=== PATIENT | male | born 1945 | race Caucasian/White ===

== ENCOUNTER 2019-04-17 17:59 | Inpatient (IN) ==
[2019-04-17] MEDS ORDERED: HYDROmorphone 2 MG/1 ML VIAL IV STA (19:59)
[2019-04-17] MEDS ORDERED: FUROSEMIDE 40 MG/4 ML VIAL IV STA (19:59)
[2019-04-17] MEDS ORDERED: ONDANSETRON 4 MG/2 ML VIAL IV STA (19:59)
[2019-04-17] MEDS ORDERED: PANTOPRAZOLE 40 MG VIAL IV STA (19:59)
[2019-04-17 20:50] LABS: Basophils % 0.4 % (0.0-0.8); Eosinophils # 0.1 10*3/uL (0.0-0.87); Eosinophils % 1.6 % (0.00-10.9); Hematocrit 34.3 VOL% (42.0-52.0); Hemoglobin 10.4 GM/DL (14.0-18.0); Immature Granulocytes % 0.6 %; Immature Granulocytes Absolute 0.04 #; Lymphocytes % 14.6 % (21.2-54.2); Mean Corpuscular HGB Conc 30.3 GM/DL (32-36); Mean Corpuscular Volume 80.3 FL (87-102); Mean Platelet Volume 12.7 FL (9.6-12.0); Monocytes % 10.3 % (1.7-12.7); Neutrophils % 72.5 % (38.7-73.9); Platelet Count 268 T/CUMM (130-400); Red Blood Count 4.27 MC/CUMM (3.8-5.5); Red Cell Distribution Width 18.4 % (9.3-17.3); White Blood Count 6.9 T/CUMM (4-12)
[2019-04-17 21:34] LABS: Albumin 2.6 G/DL (3.4-5.0); Bilirubin,Total 4.1 MG/DL (0.2-1.0); Calcium 8.8 MG/DL (8.5-10.1); Osmolality,Calculated 273.2 MOS/KG (273-304); Total Protein 8.2 G/DL (6.4-8.3)
[2019-04-17] MEDS ORDERED: PIPERACILLIN/TAZOBACTAM 3,375 MG in SODIUM CHLORIDE 0.9% 100 ML IV SCH (22:00)
[2019-04-17 22:09] LABS: Apearance,Urine CLEAR (Clear); Bacteria,Urine Moderate /HPF (Few); Bilirubin,Urine Negative (Negative); Blood, Urine Negative (Negative); Glucose,Urine (UA) Negative (Negative); Hyaline Casts,Urine 79 /LPF (0-3); Ketones,Urine Negative (Negative); Mucus,Urine Occasional /LPF (Occasional); Nitrite,Urine Negative (Negative); Protein,Urine Negative; RBC,Urine 1 /HPF (0-4); Squamous Epithelial Cell,Urine Occasional /HPF (0-10); Urine Color Amber (Yellow); Urine Specific Gravity 1.011 (1.001-1.035); WBC,Urine 11 /HPF (0-6)
[2019-04-17] MEDS ORDERED: MORPHINE 4 MG/1 ML VIAL IV PRN (22:39)
[2019-04-17] MEDS ORDERED: ONDANSETRON 4 MG/2 ML VIAL IV PRN (22:39)
[2019-04-17] MEDS ORDERED: DEXTROSE 50% 25 GM/50 ML SYRINGE IV PRN (23:03)
[2019-04-17] MEDS ORDERED: GLUCAGON 1 MG VIAL IM PRN (23:03)
[2019-04-18] MEDS: SPIRONOLACTONE 50 MG TABLET PO SCH ×3 (01:40→20:25)
[2019-04-18] MEDS: LACTULOSE 20 GM/30 ML UDCUP PO SCH ×3 (01:46→20:30)
[2019-04-18 03:23] LABS: Basophils % 0.4 % (0.0-0.8); Eosinophils # 0.1 10*3/uL (0.0-0.87); Hematocrit 30.9 VOL% (42.0-52.0); Hemoglobin 9.3 GM/DL (14.0-18.0); Immature Granulocytes % 0.5 %; Immature Granulocytes Absolute 0.03 #; Lymphocytes # 1.3 10*3/uL (1.4-4.0); Lymphocytes % 22.2 % (21.2-54.2); Mean Corpuscular HGB Conc 30.1 GM/DL (32-36); Mean Corpuscular Volume 80.7 FL (87-102); Mean Platelet Volume 11.8 FL (9.6-12.0); Monocytes % 12.6 % (1.7-12.7); Neutrophils % 62.3 % (38.7-73.9); Platelet Count 186 T/CUMM (130-400); Red Blood Count 3.83 MC/CUMM (3.8-5.5); Red Cell Distribution Width 17.9 % (9.3-17.3); White Blood Count 5.6 T/CUMM (4-12)
[2019-04-18 03:51] LABS: Albumin 2.4 G/DL (3.4-5.0); Bilirubin,Total 3.1 MG/DL (0.2-1.0); Calcium 8.4 MG/DL (8.5-10.1); Osmolality,Calculated 275.1 MOS/KG (273-304); Total Protein 7.3 G/DL (6.4-8.3)
[2019-04-18] MEDS ORDERED: POTASSIUM CHLORIDE 20 MEQ TABLET PO ONE (07:20)
[2019-04-18] MEDS: INSULIN REGULAR 100 UNIT/ML SUBCUT SCH ×4 (09:57→20:30)
[2019-04-18] MEDS ORDERED: ALBUMIN 25% 12.5 GM in PREMIX 1 EACH IV PRN (13:36)
[2019-04-18] MEDS ORDERED: ALBUMIN 25% 12.5 GM/50 ML VIAL IV ONE (13:39)
[2019-04-18] MEDS: FUROSEMIDE 80 MG TABLET PO SCH ×2 (14:26→15:05)
[2019-04-18] MEDS: RIFAXIMIN 550 MG TABLET PO SCH ×2 (14:27→20:25)
[2019-04-18] MEDS: PANTOPRAZOLE 40 MG TABLET PO SCH (14:33)
[2019-04-19] MEDS ORDERED: ZALEPLON 5 MG CAPSULE PO PRN (01:08)
[2019-04-19 05:15] LABS: Basophils % 0.6 % (0.0-0.8); Eosinophils # 0.1 10*3/uL (0.0-0.87); Eosinophils % 1.4 % (0.00-10.9); Hematocrit 28.7 VOL% (42.0-52.0); Immature Granulocytes % 0.4 %; Immature Granulocytes Absolute 0.02 #; Lymphocytes % 19.7 % (21.2-54.2); Mean Corpuscular HGB Conc 31.4 GM/DL (32-36); Mean Corpuscular Volume 78.4 FL (87-102); Mean Platelet Volume 12.4 FL (9.6-12.0); Monocytes % 10.4 % (1.7-12.7); Neutrophils % 67.5 % (38.7-73.9); Platelet Count 165 T/CUMM (130-400); Red Blood Count 3.66 MC/CUMM (3.8-5.5); Red Cell Distribution Width 17.9 % (9.3-17.3); White Blood Count 4.8 T/CUMM (4-12)
[2019-04-19 05:32] LABS: Calcium 8.1 MG/DL (8.5-10.1); Osmolality,Calculated 272.2 MOS/KG (273-304)
[2019-04-19 06:14] LABS: Cancer Antigen 19-9 35.2 U/ML (0-37); Carcinoembryonic Antigen 2.2 NG/ML (0.0-5.0)
[2019-04-19] MEDS ORDERED: POTASSIUM CHLORIDE 20 MEQ TABLET PO ONE (07:28)
[2019-04-19] MEDS ORDERED: LEVOFLOXACIN INJ 500 MG in PREMIX 1 EACH IV SCH (08:00)
[2019-04-19] MEDS: PANTOPRAZOLE 40 MG TABLET PO SCH (08:52)
[2019-04-19] MEDS: FUROSEMIDE 80 MG TABLET PO SCH ×2 (08:52→17:07)
[2019-04-19] MEDS: RIFAXIMIN 550 MG TABLET PO SCH ×2 (08:52→21:17)
[2019-04-19] MEDS: INSULIN REGULAR 100 UNIT/ML SUBCUT SCH ×3 (08:53→17:07)
[2019-04-19] MEDS: LACTULOSE 20 GM/30 ML UDCUP PO SCH ×2 (08:53→21:18)
[2019-04-19] MEDS: SPIRONOLACTONE 50 MG TABLET PO SCH ×2 (09:04→21:17)
[2019-04-20] MEDS: INSULIN REGULAR 100 UNIT/ML SUBCUT SCH ×5 (01:57→21:16)
[2019-04-20 05:01] LABS: Basophils % 0.3 % (0.0-0.8); Eosinophils # 0.1 10*3/uL (0.0-0.87); Eosinophils % 1.7 % (0.00-10.9); Hematocrit 30.3 VOL% (42.0-52.0); Hemoglobin 9.7 GM/DL (14.0-18.0); Immature Granulocytes % 0.5 %; Immature Granulocytes Absolute 0.03 #; Lymphocytes % 15.5 % (21.2-54.2); Mean Corpuscular Volume 77.3 FL (87-102); Mean Platelet Volume 12.4 FL (9.6-12.0); Monocytes % 10.1 % (1.7-12.7); Neutrophils % 71.9 % (38.7-73.9); Platelet Count 181 T/CUMM (130-400); Red Blood Count 3.92 MC/CUMM (3.8-5.5); Red Cell Distribution Width 17.9 % (9.3-17.3); White Blood Count 6.3 T/CUMM (4-12)
[2019-04-20 05:47] LABS: Calcium 8.2 MG/DL (8.5-10.1); Osmolality,Calculated 267.5 MOS/KG (273-304)
[2019-04-20] MEDS: SPIRONOLACTONE 50 MG TABLET PO SCH ×2 (09:31→21:16)
[2019-04-20] MEDS: RIFAXIMIN 550 MG TABLET PO SCH ×2 (09:31→21:16)
[2019-04-20] MEDS: PIPERACILLIN/TAZOBACTAM 3,375 MG in SODIUM CHLORIDE 0.9% 100 ML IV SCH ×2 (09:31→15:46)
[2019-04-20] MEDS: FUROSEMIDE 80 MG TABLET PO SCH ×2 (09:31→15:47)
[2019-04-20] MEDS: LACTULOSE 20 GM/30 ML UDCUP PO SCH ×3 (09:31→18:07)
[2019-04-20] MEDS: PANTOPRAZOLE 40 MG TABLET PO SCH (09:31)
[2019-04-21] MEDS: PIPERACILLIN/TAZOBACTAM 3,375 MG in SODIUM CHLORIDE 0.9% 100 ML IV SCH ×3 (00:25→16:23)
[2019-04-21] MEDS: LACTULOSE 20 GM/30 ML UDCUP PO SCH ×2 (00:32→06:26)
[2019-04-21] MEDS: SPIRONOLACTONE 50 MG TABLET PO SCH (08:58)
[2019-04-21] MEDS: FUROSEMIDE 80 MG TABLET PO SCH ×2 (08:58→16:27)
[2019-04-21] MEDS: RIFAXIMIN 550 MG TABLET PO SCH (08:58)
[2019-04-21] MEDS: PANTOPRAZOLE 40 MG TABLET PO SCH (08:58)
[2019-04-21] MEDS: INSULIN REGULAR 100 UNIT/ML SUBCUT SCH ×3 (12:46→16:27)
[2019-04-21 16:05] VITALS: BP 93/55
== END 2019-04-21 17:15 | disposition home health service (06) | DRG 435 ==
LOC: N.EDINP 17:59 → N.ED 17:59 → N.4E 23:03 → SUATTDRO 04-19 14:43
PROVIDERS: ADMIT Internal Medicine